=== PATIENT | female | born 1995 | race Caucasian/White ===

== ENCOUNTER 2017-07-09 00:56 | Day surgery (SDC) | payer OTHER ==
[2017-07-09 01:21] VITALS: BP 104/59; TEMP 98; BMI 26.7
[2017-07-09] MEDS ORDERED: Ondansetron HCl/PF 4 MG/2 ML Vial IVP PRN (01:33)
[2017-07-09] MEDS ORDERED: Promethazine HCl 25 MG/ML VIAL IM/IV PRN (01:33)
[2017-07-09] MEDS ORDERED: Sodium Chloride 0.9% 1,000 ML IV SCH ×2 (01:45→02:45)
[2017-07-09 01:49] LABS: #Eosinphils 0.1 thou/uL (0.0-0.7); #Lymphocytes 0.9 thou/uL (1.20-3.40); #Monocytes 0.4 thou/uL (0.11-0.59); #Neutrophils 10.4 thou/uL (1.40-6.50); %Eosinophils 0.6 % (0.0-10.0); %Lymphocytes 7.3 % (21.0-51.0); %Monocytes 3.4 % (0.0-10.0); Hematocrit 36.4 % (36.0-47.0); Mean Platelet Volume 6.1 fL (7.4-10.4); Red Blood Cell (RBC) Count 3.92 mill/uL (4.20-5.40); White Blood Cell (WBC) Count 11.7 thou/uL (4.8-10.8)
[2017-07-09 02:14] LABS: ALT (SGPT) 11 U/L (8-55); AST (SGOT) 13 U/L (5-34); Alkaline Phosphatase 68 U/L (40-150); Anion Gap 13 mmol/L (10-20); BUN (Urea Nitrogen) 8 mg/dL (7.0-18.7); Bilirubin, Total 0.4 mg/dL (0.2-1.2); Calc. Creatinine Clearance 174 mL/min (70-130); Calcium 8.5 mg/dL (7.8-10.44); Carbon Dioxide 19 mmol/L (22-29); Chloride 109 mmol/L (98-107); Estimated GFR-MDRD Greater than 90; Globulin 2.9 g/dL (2.4-3.5); Protein, Total 6.5 g/dL (6.0-8.3)
--- NOTE | 2017-07-09 04:38 | PRG ---
DATE OF SERVICE: 07/09/2017 TIME OF SERVICE: 214 PRESENTING COMPLAINT: Nausea and vomiting at 20 weeks' gestation. HISTORY OF PRESENT ILLNESS: Ms. Pearce is a 22-year-old, 2, para 1 at 20 weeks' gestation b y stated PIETRO and sees Dr. Ambrocio Redmond. She reports that approximately at 1800 on 07/08/2017, she beg an to have nausea and vomiting. She denies fever. She states that nobody else in her household had this. OB HISTORY: x1. Uncomplicated history. Of note, the patient reports that she had hyp eremesis with her previous and somewhat earlier in this . She had not been on any medications regularly for this at this time. She did report that she had promethazine at home and t ook 1 dose. PAST MEDICAL HISTORY: None. PAST SURGICAL HISTORY: None. ALLERGIES: PENICILLIN and TRAMADOL. MEDICATIONS: vitamins. SOCIAL HISTORY: Denies tobacco, alcohol, or drug abuse. REVIEW OF SYSTEMS: Noncontributory. PHYSICAL EXAMINATION: GENERAL: White female with a near constant vomiting on presentation. VITAL SIGNS: Pulse 100, blood pressure 104/59, temperature 98.0 axillary, respirations 18. HEENT: Within normal limits. LUNGS: Clear to auscultation bilaterally. HEART: Regular rhythm. ABDOMEN: Soft and nontender. Fundal height 20 cm. FHTs are 140s. PELVIC: Vaginal and vulvar exam deferred. EXTREMITIES: Without clubbing, cyanosis, or edema. LABORATORY STUDIES: Hematocrit of 36%, white count of 11.7, normal platelet count. Comp metabolic p davina revealed potassium of 3.7, creatinine of 0.54, and was otherwise within normal limits. COURSE OF THERAPY: The patient received 2 liters of normal saline as well as a 8 of Zofran and 25 of Phenergan. She had a good clinical response to this, and at that point in time, desired to be disch arged home. Patient was discharged home with instructions to take another dose of promethazine at [address] Redmond next week and given ER precautions.
== END 2017-07-09 03:20 | disposition home or self-care (01) ==
LOC: L&D/OP 00:56
PROVIDERS: ATTEND Obstetrics & Gynecology
DX: O99.89 Other specified diseases and conditions complicating pregnancy, childbirth and the puerperium (principal); R11.2 Nausea with vomiting, unspecified; Z3A.20 20 weeks gestation of pregnancy; Z79.899 Other long term (current) drug therapy; Z88.0 Allergy status to penicillin; Z88.5 Allergy status to narcotic agent
CPT/HCPCS: 80053; 85025; 96360; 96361; 96372; 96375; J2405; J2550

== ENCOUNTER → 2024-10-05 | Day surgery (SDC) | payer OTHER ==
[~2024-10-05] MED LIST: Acetaminophen 500 MG TAB ONE
[2024-10-05] MEDS: Acetaminophen 500 MG TAB PO SCH (09:11)
[2024-10-05] MEDS: Iron Sucrose Complex 500 MG in Sodium Chloride 0.9% 250 ML 250 ML IVPB SCH (10:25)
[2024-10-05 10:35] VITALS: TEMP 98.1
[2024-10-05 15:09] VITALS: BP 109/68
== END ==
LOC: ONC/OP 09:06
PROVIDERS: ATTEND Nurse Practitioner Women's Health
DX: O99.019 Anemia complicating pregnancy, unspecified trimester (principal); D64.9 Anemia, unspecified; Z3A.00 Weeks of gestation of pregnancy not specified; Z91.09 Other allergy status, other than to drugs and biological substances; Z91.040 Latex allergy status; Z91.048 Other nonmedicinal substance allergy status; Z88.5 Allergy status to narcotic agent; Z79.899 Other long term (current) drug therapy; Z90.49 Acquired absence of other specified parts of digestive tract
CPT/HCPCS: 96365; 96366; J1756; J7050

== ENCOUNTER 2025-03-29 18:45 | Inpatient (IN) | payer OTHER ==
[2025-03-29 21:05] VITALS: BMI 30.2
[2025-03-30] MEDS: Acetaminophen 500 MG TAB PO SCH (00:02)
[2025-03-30] MEDS: Ibuprofen 800 MG TAB PO PRN (00:04)
[2025-03-30 04:54] LABS: #Basophils 0.03 10x3/uL (0.0-0.2); #Eosinophils 0.20 10x3/uL (0.0-0.7); #Monocytes 0.70 10x3/uL (0.11-0.59); #Neutrophils 3.38 10x3/uL (1.40-6.50); %Basophils 0.5 % (0.0-1.0); %Eosinophils 3.0 % (0.0-10.0); %Lymphocytes 34.3 % (21.0-51.0); %Monocytes 10.6 % (0.0-10.0); %Neutrophils 51.3 % (42.0-75.0); Hematocrit 27.8 % (36.0-47.0); Hemoglobin 8.6 g/dL (12.0-16.0); Mean Corpuscular Hemoglobin 26.3 pg (27.0-31.0); Mean Corpuscular Volume 85.0 fL (78.0-98.0); Platelet Count 245 10x3/uL (130-400); Red Blood Cell (RBC) Count 3.27 mill/uL (4.20-5.40); White Blood Cell (WBC) Count 6.59 10x3/uL (4.8-10.8)
[2025-03-30] MEDS: Acetaminophen 325 MG TAB PO PRN (04:56)
[2025-03-30 05:03] LABS: Anion Gap 12 mmol/L (10-20); BUN (Urea Nitrogen) 12 mg/dL (7.0-18.7); Calc. Creatinine Clearance 166 mL/min (70-130); Calcium 7.5 mg/dL (7.8-10.44); Carbon Dioxide 24 mmol/L (22-29); Chloride 109 mmol/L (98-107); Glucose 78 mg/dL (70-105); Potassium 3.7 mmol/L (3.5-5.1); Sodium 141 mmol/L (136-145)
[2025-03-30] MEDS: Ondansetron PF 4 MG/2 ML Vial IVP PRN (10:17)
[2025-03-30] MEDS: HYDROcodone/Acetaminophen 5/325 mg Tablet PO PRN ×2 (13:55→20:45)
[2025-03-30] MEDS: cefTRIAXone\\ROCEPHIN 1 GM in Sodium Chloride 0.9% 100 ML IVPB SCH (14:25)
[2025-03-30 18:01] LABS: INR-International Normal Ratio 1.0; PTT 29.0 sec (22.9-36.1); Prothrombin Time 13.2 sec (12.0-14.7)
[2025-03-31 05:38] LABS: #Basophils 0.04 10x3/uL (0.0-0.2); #Eosinophils 0.22 10x3/uL (0.0-0.7); #Monocytes 0.57 10x3/uL (0.11-0.59); #Neutrophils 3.15 10x3/uL (1.40-6.50); %Basophils 0.7 % (0.0-1.0); %Eosinophils 3.6 % (0.0-10.0); %Lymphocytes 35.0 % (21.0-51.0); %Monocytes 9.3 % (0.0-10.0); %Neutrophils 51.1 % (42.0-75.0); Hematocrit 30.2 % (36.0-47.0); Hemoglobin 9.1 g/dL (12.0-16.0); Mean Corpuscular Hemoglobin 25.9 pg (27.0-31.0); Mean Corpuscular Volume 86.0 fL (78.0-98.0); Platelet Count 255 10x3/uL (130-400); Red Blood Cell (RBC) Count 3.51 mill/uL (4.20-5.40); White Blood Cell (WBC) Count 6.15 10x3/uL (4.8-10.8)
[2025-03-31 05:53] LABS: Anion Gap 14 mmol/L (10-20); BUN (Urea Nitrogen) 15 mg/dL (7.0-18.7); Calc. Creatinine Clearance 161 mL/min (70-130); Calcium 7.7 mg/dL (7.8-10.44); Carbon Dioxide 23 mmol/L (22-29); Chloride 110 mmol/L (98-107); Glucose 87 mg/dL (70-105); Potassium 3.8 mmol/L (3.5-5.1); Sodium 143 mmol/L (136-145)
[2025-03-31] MEDS ORDERED: Iopamidol-370 76% 500 ML MDV (1 ML CHARGE) ONE (11:54)
[2025-03-31] MEDS: Ondansetron PF 4 MG/2 ML Vial IVP PRN (14:35)
[2025-03-31 14:46] LABS: ALT (SGPT) 8 U/L (Less than 34); AST (SGOT) 16 U/L (11-34); Albumin 3.1 g/dL (3.1-4.5); Alkaline Phosphatase 113 U/L (40-110); Bilirubin, Direct 0.1 mg/dL (0.1-0.3); Bilirubin, Total 0.2 mg/dL (0.3-1.2)
[2025-04-01 05:52] LABS: #Basophils 0.03 10x3/uL (0.0-0.2); #Eosinophils 0.21 10x3/uL (0.0-0.7); #Monocytes 0.56 10x3/uL (0.11-0.59); #Neutrophils 3.36 10x3/uL (1.40-6.50); %Basophils 0.5 % (0.0-1.0); %Eosinophils 3.3 % (0.0-10.0); %Lymphocytes 34.9 % (21.0-51.0); %Monocytes 8.7 % (0.0-10.0); %Neutrophils 52.3 % (42.0-75.0); Hematocrit 29.5 % (36.0-47.0); Hemoglobin 8.8 g/dL (12.0-16.0); Mean Corpuscular Hemoglobin 25.2 pg (27.0-31.0); Mean Corpuscular Volume 84.5 fL (78.0-98.0); Platelet Count 247 10x3/uL (130-400); Red Blood Cell (RBC) Count 3.49 mill/uL (4.20-5.40); White Blood Cell (WBC) Count 6.42 10x3/uL (4.8-10.8)
[2025-04-01 06:25] LABS: Anion Gap 13 mmol/L (10-20); BUN (Urea Nitrogen) 16 mg/dL (7.0-18.7); Calc. Creatinine Clearance 172 mL/min (70-130); Calcium 7.8 mg/dL (7.8-10.44); Carbon Dioxide 23 mmol/L (22-29); Chloride 110 mmol/L (98-107); Glucose 87 mg/dL (70-105); Potassium 3.9 mmol/L (3.5-5.1); Sodium 142 mmol/L (136-145)
[2025-04-01 06:28] LABS: ALT (SGPT) 10 U/L (Less than 34); AST (SGOT) 10 U/L (11-34); Albumin 2.7 g/dL (3.1-4.5); Alkaline Phosphatase 96 U/L (40-110); Bilirubin, Direct Less than 0.1 mg/dL (0.1-0.3); Bilirubin, Total 0.1 mg/dL (0.3-1.2)
[2025-04-01] MEDS: NIFEdipine 10 MG CAP PO SCH (10:20)
[2025-04-01] MEDS: NIFEdipine XL 30 MG ER.TAB PO SCH (10:33)
[2025-04-01 17:18] VITALS: BP 137/81; TEMP 98.1
[2025-04-01] MEDS ORDERED: NIFEdipine 10 MG CAP PO SCH (21:00)
[2025-04-02] MEDS ORDERED: NIFEdipine XL 30 MG ER.TAB PO SCH (09:00)
== END 2025-04-01 20:10 | disposition home or self-care (01) | DRG 776 ==
LOC: MSONC 19:47 → OBSVTOIN 03-31 10:24
PROVIDERS: ADMIT Internal Medicine; ATTEND Hospitalist
DX: O9A.23 Injury, poisoning and certain other consequences of external causes complicating the puerperium (principal); T83.84XA Pain due to genitourinary prosthetic devices, implants and grafts, initial encounter; N13.6 Pyonephrosis; Y73.2 Prosthetic and other implants, materials and accessory gastroenterology and urology devices associated with adverse incidents; O86.21 Infection of kidney following delivery; Z90.49 Acquired absence of other specified parts of digestive tract; Z98.84 Bariatric surgery status; O10.93 Unspecified pre-existing hypertension complicating the puerperium
CPT/HCPCS: 36415; 51798; 71275; 74176; 80048; 80053; 80076; 81001; 85025; 85610; 85730; 87077; 87086; 87186; 93005; 93010; 96365; 96374; 96375; 96376; G0378; J0696; J2270; J2405; Q9967